=== PATIENT | male | born 1975 | race Caucasian/White ===

== ENCOUNTER 2020-05-14 13:06 | Inpatient (IN) | payer OTHER ==
[~2020-05-14] VITALS: Ht 182.9 cm; Wt 66.2 kg
[2020-05-14 13:12] VITALS: BP 117/77
[2020-05-14 13:50] LABS: ABSOLUTE BASOPHILS 0.1 thou/uL (0.0-0.2); ABSOLUTE EOSINOPHILS 0.1 thou/uL (0.0-0.7); ABSOLUTE LYMPHOCYTES 1.7 thou/uL (0.8-5.3); ABSOLUTE MONOCYTES 0.7 thou/uL (0.0-1.2); BASOPHILS 0.7 %; EOSINOPHILS 0.7 %; HEMATOCRIT 46.8 % (42.0-52.0); HEMOGLOBIN 16.6 gm/dL (14.0-18.0); MCH 34.4 pg (26.0-34.0); MCHC 35.4 g/dL (28.0-37.0); MCV 97.1 fL (80.0-100.0); MONOCYTES 5.8 %; MPV 8.2 fl. (7.2-11.1); NUCLEATED RBCS 0 /100WBC; PLATELET COUNT* 220 thou/uL (150-400); POLYS 77.8 %; RBC 4.82 mil/uL (4.50-6.00); RDW-CV 13.5 % (10.5-14.5); WBC 11.6 thou/uL (4.0-11.0)
[2020-05-14 13:51] LABS: CALCIUM 8.3 mg/dL (8.5-10.1); CREATININE 1.2 mg/dL (0.6-1.3); POTASSIUM 3.8 mmol/L (3.5-5.1)
[2020-05-14 14:01] LABS: ALBUMIN 4.3 g/dL (3.4-5.0); MAGNESIUM 2.2 mg/dL (1.8-2.4); TOTAL PROTEIN 7.3 g/dL (6.4-8.2)
[2020-05-14 19:45] VITALS: BP 121/64
[2020-05-14 20:15] VITALS: BP 129/59
[2020-05-14 22:16] LABS: AMP/METHAMP Negative (Negative); BARBITURATES Negative (Negative); BENZODIAZEPINES Negative (Negative); COCAINE Negative (Negative); METHADONE Negative (Negative); OPIATES POSITIVE (Negative); PCP Negative (Negative); THC POSITIVE (Negative)
[2020-05-15] VITALS (7 sets, daily range): BP systolic 103–120; BP diastolic 53–76
--- NOTE | 2020-05-15 10:41 | EKG ---
[place] [address] ELECTROCARDIOGRAM REPORT Name: NOHEMY CUEVAS Room: [address] ADM IN [facility].#: [id number] Admission: 05/14/20 Attend Phys: Minal Nieto, Discharge: Date of : 79 Date of Service: 05/14/20 1310 Report #: [id number] THIS REPORT FOR: //name// [facility] ED Test Date: 2020-05-14 Test Time: 13:10:23 Pat Name: NOHEMY CUEVAS Department: Room: [facility] Gender: M Stuffed Casing Tier: CCD : 1975 Requested By: Tres Ulloa Order Number: [id number] MD: Dario Cheng Measurements Intervals Hope Rate: 76 P: 89 ID: [id number] QRS: 98 QRSD: 104 T: 74 QT: 380 QTc: 428 Interpretive Statements Sinus rhythm Consider right ventricular hypertrophy ST elev, probable normal early repol pattern No previous ECG available for comparison Electronically Signed On 05-15-2020 10:41:37 CDT by Dario Cheng [email or web address] <ELECTRONICALLY SIGNED> By: Dario Cheng MD, [facility] 05/15/20 1041 1310 1310 Dario Cheng MD, [facility] /EPI
--- NOTE | 2020-05-15 14:50 | 2DMMODE ---
[place] [address] 2 D/M-MODE ECHOCARDIOGRAM Name: NOHEMY CUEVAS Room: [address] IN .[place]ataly.#: [id number] Admission: 05/14/20 Attend Phys: Minal Nieto, Discharge: Date of : 79 Date of Service: 05/15/20 1450 Report #: [id number] THIS REPORT FOR: cc: FAM - No family physician/PCP FAM - No family physician/PCP Dario Cheng MD [facility] ~ APPROVED REPORT Study performed: 05/15/2020 09:33:08 EXAM: Comprehensive 2D, Doppler, and color-flow Echocardiogram Patient Location: In-Patient Room #: [facility] Status: routine BSA: 1.91 HR: 52 bpm BP: 115/67 mmHg Rhythm: NSR Other Information Study Quality: Good Indications lvh on ekg 2D Dimensions IVSd: 8.46 (7-11mm) LVOT Diam: 21.86 (18-24mm) LVDd: 43.89 mm PWd: 8.81 (7-11mm) LVDs: 31.19 (25-40mm) Aortic Root: 28.24 mm Volumes Left Atrial Volume (Systole) LA ESV Index: 17.40 mL/m2 Aortic Valve AoV Peak Jarod.: 1.01 m/s AO Peak Gr.: 4.12 mmHg LVOT Max P.12 mmHg AO Mean Gr.: 2.15 mmHg LVOT Mean P.27 mmHg LVOT Max V: 0.88 m/s AO V2 VTI: 20.09 cm LVOT Mean V: 0.50 m/s ORIANA (VTI): 3.43 cm2 LVOT V1 VTI: 18.38 [place] [address] 2 D/M-MODE ECHOCARDIOGRAM Name: NOHEMY CUEVAS Room: [address] IN .R.#: [id number] Admission: 05/14/20 Attend Phys: Minal Nieto, Discharge: Date of : 79 Date of Service: 05/15/20 1450 Report #: [id number] Mitral Valve E/A Ratio: 2.69 MV Decel. Time: 223.86 ms MV E Max Jarod.: 0.79 m/s MV PHT: 64.92 ms MVA (PHT): 3.39 cm2 TDI E/Lateral E': 5.64 E/Medial E': 6.58 Medial E' Jarod.: 0.12 m/s Lateral E' Jarod.: 0.14 m/s Pulmonary Valve PV Peak Jarod.: 0.91 m/s PV Peak Gr.: 3.32 mmHg Tricuspid Valve RAP Estimate: 5.00 mmHg TR Peak Gr.: 19.29 mmHg RVSP: 24.00 mmHg PA Pressure: 24.00 mmHg Left Ventricle The left ventricle is normal size. There is normal LV segmental wall motion. There is normal left ventricular wall thickness. Left ventricular systolic function is normal. The left ventricular ejection fraction is within the normal range. LVEF is 55-60%. The left ventricular diastolic function is normal. Right Ventricle The right ventricle is normal size. The right ventricular systolic function is normal. Atria The left atrium size is normal. The right atrium size is normal. Aortic Valve The aortic valve is normal in structure. No aortic regurgitation is present. There is no aortic valvular stenosis. Mitral Valve The mitral valve is normal in structure. Trace mitral regurgitation. No evidence of mitral valve stenosis. Tricuspid Valve The tricuspid valve is normal in structure. Mild tricuspid regurgitation. estimated pa pressure 25 [place] [address] 2 D/M-MODE ECHOCARDIOGRAM Name: NOHEMY CUEVAS Room: [address]#: [id number] Admission: 05/14/20 Attend Phys: Minal Nieto, Discharge: Date of : 79 Date of Service: 05/15/20 1450 Report #: [id number] Pulmonic Valve The pulmonary valve is normal in structure. There is no pulmonic valvular regurgitation. Great Vessels The aortic root is normal in size. IVC is normal in size and collapses >50% with inspiration. Pericardium There is no pericardial effusion. Left pleural effusion. <Conclusion> Left ventricular systolic function is normal. The left ventricular ejection fraction is within the normal range. <ELECTRONICALLY SIGNED> By: Dario Cheng MD, FACC 05/15/20 1450 1450 1450 Dario Cheng MD, FACC /INF
[2020-05-16 04:00] VITALS: BP 110/67
[2020-05-16 08:00] VITALS: BP 108/62
[2020-05-16] MEDS ORDERED: NORCO 5-325 TA1 EAC2 PO (10:57)
[2020-05-16 12:00] VITALS: BP 105/60
[2020-05-16 15:59] VITALS: BP 110/70
[2020-05-16 20:00] VITALS: BP 110/72
[2020-05-17] VITALS: BP 101/60
[2020-05-17 04:00] VITALS: BP 104/61
[2020-05-17 08:56] VITALS: BP 96/64
[2020-05-17 12:24] VITALS: BP 117/70
[2020-05-17 17:37] VITALS: BP 112/65
[2020-05-17 20:20] VITALS: BP 139/78
[2020-05-18] VITALS: BP 106/65
[2020-05-18 04:00] VITALS: BP 103/59
[2020-05-18 08:40] VITALS: BP 100/60
[2020-05-18] MEDS ORDERED: LEVAQUIN 500 M500 M1 PO (09:07)
[2020-05-18] MEDS ORDERED: LIDOPATCH1 EACH TOP (09:07)
[2020-05-18 12:09] VITALS: BP 122/63
[2020-05-18 12:26] VITALS: BP 122/63
== END 2020-05-18 12:55 | disposition home or self-care (01) | DRG 201 ==
LOC: M.ERS 13:06 → M.TBA-ER 15:39 → M.2W 15:39
PROVIDERS: Emergency Medicine Emergency Medical Services; ADMIT Internal Medicine; ATTEND Internal Medicine
PROC: 0W9930Z Drainage of Right Pleural Cavity with Drainage Device, Percutaneous Approach (ICD-10-PCS; principal; 2020-05-14)
DX: J93.83 Other pneumothorax (principal); F17.210 Nicotine dependence, cigarettes, uncomplicated; F12.90 Cannabis use, unspecified, uncomplicated; Z20.828 Contact with and (suspected) exposure to other viral communicable diseases; Z79.899 Other long term (current) drug therapy